=== PATIENT | female | born 1995 | race Caucasian/White ===

== ENCOUNTER 2018-06-06 17:19 | Emergency (ER) | payer MEDICAID ==
[~2018-06-06] VITALS: Ht 160 cm; Wt 64.0 kg
[~2018-06-06 17:19] MED LIST: AMOX500T2 PO
[2018-06-06 18:28] VITALS: BP 122/93
== END 2018-06-07 00:03 | disposition left against medical advice (07) ==
LOC: ER 17:19
DX: Z53.21 Procedure and treatment not carried out due to patient leaving prior to being seen by health care provider (principal)